=== PATIENT | male | born 1950 | race Caucasian/White ===

== ENCOUNTER 2022-12-11 15:33 | Inpatient (IN) | payer MEDICARE ==
[2022-12-11 17:34] VITALS: BMI 33.3
[2022-12-11] MEDS ORDERED: Clotrimazole/Betamethasone Cream 45 GM TUBE TOP PRN (20:42)
[2022-12-11] MEDS ORDERED: Heparin 10,000 UNITS/ 10 ML VIAL SLOW IVP SCH (20:45)
[2022-12-11] MEDS ORDERED: Heparin 25,000 units/D5W 500 ML IVPB SCH (21:00)
[2022-12-11] MEDS ORDERED: Enoxaparin 120 MG/0.8 ML SYRINGE SC SCH (21:00)
[2022-12-11 21:40] LABS: Hematocrit 44.3 % (42.0-52.0); Hemoglobin 14.6 g/dL (14.0-18.0); Platelet Count 287 10x3/uL (130-400)
[2022-12-11 22:18] LABS: Troponin I 0.659 ng/mL (< 0.028)
[2022-12-11] MEDS: Rosuvastatin 20 MG TAB PO SCH (22:27)
[2022-12-11] MEDS: Gabapentin 300 MG CAP PO SCH (22:27)
[2022-12-12 05:39] LABS: #Basophils 0.1 thou/uL (0.0-0.2); #Eosinphils 0.5 thou/uL (0.0-0.7); #Monocytes 0.8 thou/uL (0.11-0.59); #Neutrophils 5.7 thou/uL (1.40-6.50); %Basophils 1.3 % (0.0-1.0); %Eosinophils 5.3 % (0.0-10.0); %Lymphocytes 23.5 % (21.0-51.0); %Monocytes 8.8 % (0.0-10.0); %Neutrophils 60.9 % (42.0-75.0); Hematocrit 41.4 % (42.0-52.0); Hemoglobin 13.9 g/dL (14.0-18.0); Mean Corpuscular HGB CONC 33.6 g/dL (32.0-36.0); Mean Corpuscular Volume 95.4 fl (78.0-98.0); Platelet Count 282 10x3/uL (130-400); RBC Distribution Width 13.4 % (11.5-14.5); Red Blood Cell (RBC) Count 4.34 mill/uL (4.70-6.10); White Blood Cell (WBC) Count 9.4 10x3/uL (4.8-10.8)
[2022-12-12 05:59] LABS: PTT 129.1 sec (22.9-36.1)
[2022-12-12 06:01] LABS: Anion Gap 9 mmol/L (10-20); BUN (Urea Nitrogen) 10 mg/dL (8.4-25.7); Calc. Creatinine Clearance 118 mL/min (70-130); Calcium 9.5 mg/dL (7.8-10.44); Carbon Dioxide 26 mmol/L (23-31); Chloride 106 mmol/L (98-107); Estimated GFR 90; Glucose 143 mg/dL (83-110); Potassium 4.3 mmol/L (3.5-5.1); Sodium 137 mmol/L (136-145)
[2022-12-12 06:12] LABS: Critical Call Chem Troponin I RESULT DECREASING; Troponin I 0.614 ng/mL (< 0.028)
[2022-12-12] MEDS ORDERED: Heparin 25,000 units/D5W 500 ML IVPB SCH (07:30)
[2022-12-12] MEDS: Gabapentin 300 MG CAP PO SCH ×2 (08:30→21:45)
[2022-12-12] MEDS: Apixaban 5 MG TAB PO SCH ×2 (08:31→21:45)
[2022-12-12] MEDS: Tamsulosin HCl 0.4 MG CAP PO SCH (08:31)
[2022-12-12] MEDS: Allopurinol 300 MG TAB PO SCH (08:31)
[2022-12-12] MEDS: Famotidine/PF 20 mg/2ml Vial SLOW IVP SCH ×2 (08:31→21:46)
[2022-12-12] MEDS: Lisinopril 10 MG TAB PO SCH (08:31)
[2022-12-12 14:13] LABS: Critical Call Chem Troponin I DECREASE; Troponin I 0.456 ng/mL (< 0.028)
[2022-12-12] MEDS: Rosuvastatin 20 MG TAB PO SCH (21:45)
[2022-12-13] MEDS: Famotidine/PF 20 mg/2ml Vial SLOW IVP SCH ×2 (08:58→21:21)
[2022-12-13] MEDS: Tamsulosin HCl 0.4 MG CAP PO SCH (09:01)
[2022-12-13] MEDS: Allopurinol 300 MG TAB PO SCH (09:01)
[2022-12-13] MEDS: Gabapentin 300 MG CAP PO SCH ×2 (09:01→21:20)
[2022-12-13] MEDS: Apixaban 5 MG TAB PO SCH ×2 (09:02→21:21)
[2022-12-13] MEDS: Lisinopril 10 MG TAB PO SCH (09:02)
[2022-12-13 09:06] VITALS: BP 150/89
[2022-12-13] MEDS: Acetaminophen 325 MG TAB PO PRN (19:58)
[2022-12-13 20:59] LABS: Platelet Count 268 10x3/uL (130-400)
[2022-12-13] MEDS: Rosuvastatin 20 MG TAB PO SCH (21:20)
[2022-12-14] MEDS: Acetaminophen 325 MG TAB PO PRN (06:57)
[2022-12-14] MEDS: Gabapentin 300 MG CAP PO SCH (06:58)
[2022-12-14 07:41] VITALS: TEMP 97.4
[2022-12-14] MEDS: Tamsulosin HCl 0.4 MG CAP PO SCH (09:22)
[2022-12-14] MEDS: Lisinopril 10 MG TAB PO SCH (09:22)
[2022-12-14] MEDS: Allopurinol 300 MG TAB PO SCH (09:23)
[2022-12-14] MEDS: Apixaban 5 MG TAB PO SCH (09:23)
[2022-12-14] MEDS: Famotidine/PF 20 mg/2ml Vial SLOW IVP SCH (09:23)
== END 2022-12-14 11:50 | disposition home or self-care (01) | DRG 175 ==
LOC: 2NO 17:05 → IMCU/EMU 12-12 00:59
PROVIDERS: ADMIT Family Medicine; ATTEND Family Medicine
DX: I26.99 Other pulmonary embolism without acute cor pulmonale (principal); I21.A1 Myocardial infarction type 2; D68.51 Activated protein C resistance; I82.403 Acute embolism and thrombosis of unspecified deep veins of lower extremity, bilateral; I25.10 Atherosclerotic heart disease of native coronary artery without angina pectoris; M10.9 Gout, unspecified; N40.0 Benign prostatic hyperplasia without lower urinary tract symptoms; I27.20 Pulmonary hypertension, unspecified; R77.8 Other specified abnormalities of plasma proteins; I11.9 Hypertensive heart disease without heart failure; Z79.82 Long term (current) use of aspirin; Z79.899 Other long term (current) drug therapy; Z90.49 Acquired absence of other specified parts of digestive tract; Z90.89 Acquired absence of other organs; Z82.49 Family history of ischemic heart disease and other diseases of the circulatory system
CPT/HCPCS: 36415; 80048; 83880; 84484; 85014; 85018; 85025; 85049; 85730; 93306; 93970; J1644; J1650; S0028